=== PATIENT | female | born 1965 | race Caucasian/White ===

== ENCOUNTER → 2016-08-24 | Outpatient (CLI) | payer OTHER, MEDICAID | LOC: FIMAGING 13:44 | PROVIDERS: ATTEND Internal Medicine Hematology & Oncology | DX: N93.9 Abnormal uterine and vaginal bleeding, unspecified (principal); R93.8 Abnormal findings on diagnostic imaging of other specified body structures; D25.1 Intramural leiomyoma of uterus ==

== ENCOUNTER 2017-03-02 08:28 | Emergency (ER) | payer OTHER, MEDICAID ==
[2017-03-02 08:37] VITALS: BP 95/70; PULSE 67; RESP 18; TEMP 97.7; O2SAT 96
[2017-03-02] MEDS ORDERED: predniSONE 20 MG TAB PO ONE (08:55)
--- NOTE | 2017-03-02 09:01 | EDPHY ---
H & P Stated Complaint: rash Time Seen by Provider: 03/02/17 08:38 - Personal History LMP (Females 10-55): Post Menopausal Current Tetanus/Diphtheria Vaccine: Yes - Medical/Surgical History Hx Asthma: No Hx Chronic Respiratory Disease: No Hx Diabetes: No Hx Cardiac Disease: No Hx Renal Disease: No Hx Cirrhosis: No Hx Alcoholism: No Hx HIV/AIDS: No Hx Splenectomy or Spleen Trauma: No Other PMH: Breast cancer/ right mastectomy - Social History Smoking Status: Never smoked Constitutional: Initial Vital Signs Temperature (C) 36.5 C 03/02/17 08:34 Heart Rate 67 03/02/17 08:34 Respiratory Rate 18 03/02/17 08:34 Blood Pressure 95/70 L 03/02/17 08:34 O2 Sat (%) 96 03/02/17 08:34 O2 Delivery Mode Room Air Allergies/Adverse Reactions: No Known Allergies Allergy (Verified 03/02/17 08:31) Home Medications: Medication Instructions Recorded Acyclovir 03/02/17 Fulvestrant 03/02/17 Ibrance 03/02/17 Medical Decision Making ED Course/Re-evaluation: CHIEF COMPLAINT: Rash HISTORY OF PRESENT ILLNESS: 52-year-old female who has a rash several places on her body. She was seen by her oncologist because she him on the phone in he thought she may have shingles. This patient is not immunocompromised. He is taking long-term breast cancer treatment but she has a normal immune system according Dr. Augie Morrissey. Patient denies any fevers or chills. REVIEW OF SYSTEMS: A 10 point review of systems was performed and is negative with the exception of the elements mentioned in the history of present illness. PHYSICAL EXAM: HR, BP, O2 Sat, RR. Temp noted General Appearance: Alert, well hydrated, appropriate, and non-toxic appearing. Head: Atraumatic without scalp tenderness or obvious injury Eyes: Pupils equal, round, reactive to light and accommodation, EOMI, no trauma , no injection. Ears: Clear bilaterally, no perforation, normal landmarks Nose: Atraumatic, no rhinorrhea, clear. Throat: There is no erythema or exudates, no lesions, normal tonsils, mucus membranes moist. Neck: Supple, 2+ carotid upstroke, nontender, no lymphadenopathy. Respiratory: No retractions, no distress, no wheezes, and no accessory muscle use. Lungs are clear to auscultation bilaterally. Cardiovascular: Regular rate and rhythm, no murmurs, rubs, or gallops. Bilateral carotid, radial, dorsalis pedis, and posterior tibial pulses intact. Good capillary refill all extremities. Gastrointestinal: Abdomen is soft, nontender, non-distended, no masses, no rebound, no guarding, no peritoneal signs. Musculoskeletal: Normal active ROM of all extremities, atraumatic. Neurological: Alert, appropriate, and interactive. The patient has normal DTRs and non-focal cranial nerves, motor, sensory, and cerebellar exam. Skin: Mild urticaria and right hip groin area left hip groin area in a pattern of clothing. Also a couple of urticarial spots on the right and left wrists. This is clearly not in 1 dermatome. There is also no evidence of vesicles. No rashes, good turgor, no nodules on palpation. Past medical history: Breast cancer Past surgical history: Breast cancer surgery Family history: Noncontributory Social history: So, employed, does use tobacco drugs or alcohol DIFFERENTIAL DIAGNOSIS: Includes but is not limited to: Allergic reaction, urticaria, anaphylactoid reaction, shingles, bacterial skin infection MEDICAL DECISION MAKING: This but has a classic urticarial reaction and appears to be bilateral and mostly where her new genes or that she washed in a different type of soap. There appeared to be lines that are more dramatic that correspond with the folds in her jeans along hips on both sides. She also has some urticarial reaction on the insides of both wrists in the same spot potentially from put hands in her pockets or rest him on the jeans. This is not shingles. I have offered the patient prednisone, Pepcid, Benadryl she works at 1 dose of prednisone and she will follow up with her primary care doctor. Once again she is immunocompetent Departure - Departure Disposition: Home, Routine, Self-Care Clinical Impression: Rash and nonspecific skin eruption Condition: Good Instructions: Acute Rash (ED) Referrals: Elisha Tobin MD [Primary Care Provider] - As per Instructions
== END 2017-03-02 09:07 | disposition home or self-care (01) ==
DX: R21 Rash and other nonspecific skin eruption (principal); Z85.3 Personal history of malignant neoplasm of breast